=== PATIENT | female | born 1970 | race Caucasian/White ===

== ENCOUNTER 2019-02-13 08:58 | Emergency (ER) | payer SELFPAY ==
[~2019-02-13] VITALS: Ht 165.1 cm; Wt 90.7 kg
[2019-02-13 10:27] VITALS: BP 118/71
[2019-02-13] MEDS ORDERED: NAPR500T8 PO (10:43)
--- NOTE | 2019-02-13 10:44 | PHYS DOC ---
Past Medical History Past Medical History: No Pertinent History Past Surgical History: No Surgical History Alcohol Use: Occasionally Drug Use: None Adult General Chief Complaint Chief Complaint: FOOT INJURY PAIN HPI HPI Patient is a 48 year old female that presents with R foot pain since Tuesday. The patient states that her pain is 5/10 in severity and sharp and even shoots up her calf. She denies injury and states that it hurts to walk on it. Review of Systems Review of Systems Constitutional: Denies fever or chills [] Eyes: Denies change in visual acuity, redness, or eye pain [] HENT: Denies nasal congestion or sore throat [] Respiratory: Denies cough or shortness of breath [] Cardiovascular: No additional information not addressed in HPI [] GI: Denies abdominal pain, nausea, vomiting, bloody stools or diarrhea [] : Denies dysuria or hematuria [] Musculoskeletal: Reports R foot pain. Integument: Denies rash or skin lesions [] Neurologic: Denies headache, focal weakness or sensory changes [] Endocrine: Denies polyuria or polydipsia [] Complete systems were reviewed and found to be within normal limits, except as documented in this note. Physical Exam Physical Exam Constitutional: Well developed, well nourished, no acute distress, non-toxic appearance. [] HENT: Normocephalic, atraumatic, bilateral external ears normal, oropharynx moist, no oral exudates, nose normal. [] Eyes: PERRLA, EOMI, conjunctiva normal, no discharge. [] Neck: Normal range of motion, no tenderness, supple, no stridor. [] Cardiovascular:Heart rate regular rhythm, no murmur [] Lungs & Thorax: Bilateral breath sounds clear to auscultation [] Abdomen: Bowel sounds normal, soft, no tenderness, no masses, no pulsatile masses. [] Skin: Warm, dry, no erythema, no rash. [] Back: No tenderness, no CVA tenderness. [] Extremities: Tenderness to R heel. Neurologic: Alert and oriented X 3, normal motor function, normal sensory function, no focal deficits noted. [] Psychologic: Affect normal, judgement normal, mood normal. [] Current Patient Data Vital Signs Vital Signs Date Time Temp Pulse Resp B/P (MAP) Pulse Ox O2 Delivery O2 Flow Rate FiO2 8/6/19 10:27 98.3 87 16 118/71 (87) 97 Room Air 98.3 EKG EKG [] Radiology/Procedures Radiology/Procedures [] Course & Med Decision Making Course & Med Decision Making Pertinent Labs and Imaging studies reviewed. (See chart for details) Appears to have plantar fasciitis. Discussed with patient. Will d/c home. Dragon Disclaimer Dragon Disclaimer This electronic medical record was generated, in whole or in part, using a voice recognition dictation system. Departure Departure Impression: Primary Impression: Heel pain Disposition: HOME, SELF-CARE Condition: STABLE Referrals: MARLEY LEMUS (PCP) Patient Instructions: Plantar Fasciitis, Plantar Fasciitis (Heel Spur Syndrome) with [facility] Additional Instructions: Thank you for visiting [facility]. We appreciate you trusting us with your care. If any additional problems come up don't hesitate to return to visit us. Please follow up with your primary care provider so they can plan additional care if needed and know about the problem that you had. If symptoms worsen come back to the Emergency Department. Any concerning symptoms that start such as chest pain, shortness of air, weakness or numbness on one side of the body, running high fevers or any other concerning symptoms return to the ER. Please fill your medications at any pharmacy and follow the prescription i nstructions. Scripts Naproxen (NAPROXEN) 500 Mg Tablet.dr 1 TAB PO BID PRN for PAIN, #60 TAB 1 Refill Prov: CRISTI MAI APRN 02/13/19 Problem Qualifiers Primary Impression: Heel pain Laterality: right Qualified Codes: M79.671 - Pain in right foot CRISTI MAI APRN Feb 13, 2019 10:44
== END 2019-02-13 10:57 | disposition home or self-care (01) ==
LOC: ER 08:58
DX: M79.671 Pain in right foot (principal)
CPT/HCPCS: 99282

== ENCOUNTER 2020-01-17 05:11 | Observation (INO) | payer SELFPAY ==
[~2020-01-17] VITALS: Ht 165.1 cm; Wt 82.0 kg
[~2020-01-17 05:11] MED LIST: NAPR500T8 PO
--- NOTE | 2020-01-17 05:27 | PHYS DOC ---
Past Medical History Past Medical History: No Pertinent History (SHREE KAUFFMAN DO) Past Surgical History: No Surgical History (DALYSHREE Vineet NOGUEIRA) Smoking Status: Current Every Day Smoker Alcohol Use: Occasionally Drug Use: None (DALYSHREE Vineet NOGUEIRA) General Adult EDM: Chief Complaint: ASTHMA HPI: HPI: Patient is a 49 year old female with past medical history of asthma presents with the chief complaint of asthma exacerbation. Patient state she has had difficulty breathing associated with wheezing and cough with sputum and sneezing since tuesday. Patients states on tuesday her grand daughter sneezed in her face. States she normally takes albuterol NEB TID but has increased the number of treatments since tuesday. Ran out of her asthma medications today. Called EMS tonight and was given treatments given but declined transport to hospital On arrival to ER oxygen saturations 60's. Patient denies any fevers. (DALYSHREE Vineet NOGUEIRA) Review of Systems: Review of Systems: Constitutional: Denies fever or chills. [] Eyes: Denies change in visual acuity. [] HENT: Denies nasal congestion or sore throat. [] Respiratory: positive cough and shortness of breath Cardiovascular: Denies chest pain or edema. [] GI: Denies abdominal pain, nausea, vomiting, bloody stools or diarrhea. [] : Denies dysuria. [] Musculoskeletal: Denies back pain or joint pain. [] Integument: Denies rash. [] Neurologic: Denies headache, focal weakness or sensory changes. [] Endocrine: Denies polyuria or polydipsia. [] Lymphatic: Denies swollen glands. [] Psychiatric: Denies depression or anxiety. [] (SHREE KAUFFMAN DO) Heart Score: Risk Factors: Risk Factors: DM, Current or recent (<one month) smoker, HTN, HLP, family history of CAD, obesity. Risk Scores: Score 0 - 3: 2.5% MACE over next 6 weeks - Discharge Home Score 4 - 6: 20.3% MACE over next 6 weeks - Admit for Clinical Observation Score 7 - 10: 72.7% MACE over next 6 weeks - Early Invasive Strategies (SHREE KAUFFMAN DO) Current Medications: Current Medications Medications (Trade) Dose Ordered Sig/David Start Time Stop Time Status Last Admin Dose Admin Albuterol/ Ipratropium (Duoneb) 3 ml 1X ONCE 01/17/20 05:30 01/17/20 05:31 UNV 01/17/20 05:22 3 ML Methylprednisolone Sodium Succinate (SOLU-Medrol 125MG VIAL) 125 mg 1X ONCE 01/17/20 05:30 01/17/20 05:31 UNV (SHREE KAUFFMAN DO) Physical Exam: PE: Constitutional: Well developed, well nourished, no acute distress, non-toxic appearance. [] HENT: Normocephalic, atraumatic, bilateral external ears normal, oropharynx moist, no oral exudates, nose normal. [] Eyes: PERRLA, EOMI, conjunctiva normal, no discharge. [] Neck: Normal range of motion, no tenderness, supple, no stridor. [] Cardiovascular:Heart rate regular rhythm, no murmur [] Lungs & Thorax: Bilateral breath sounds clear to auscultation [] Abdomen: Bowel sounds normal, soft, no tenderness, no masses, no pulsatile masses. [] Skin: Warm, dry, no erythema, no rash. [] Back: No tenderness, no CVA tenderness. [] Extremities: No tenderness, no cyanosis, no clubbing, ROM intact, no edema. [] Neurologic: Alert and oriented X 3, normal motor function, normal sensory function, no focal deficits noted. [] Psychologic: Affect normal, judgement normal, mood normal. [] (SHREE KAUFFMAN DO) EKG: EKG: [] (SHREE KAUFFMAN DO) Radiology/Procedures: Radiology/Procedures: [] Impression: FINDINGS: Lungs: Normal lung volume. No pulmonary mass or consolidation. The tracheobronchial tree and hilar structures are normal. Pleura: No pleural effusion or pneumothorax. Heart and Mediastinum: The cardiomediastinal silhouette is normal. The great vessels of the thorax are normal. IMPRESSION: No acute cardiopulmonary process. Electronically signed by: Steve Thapa MD (01/17/2020 5:41 AM) [facility] (SHREE KAUFFMAN DO) Course & Med Decision Making: Course & Med Decision Making Pertinent Labs and Imaging studies reviewed. (See chart for details) [] Intial treatment with Duoneb. Patient states breathing improved post treatment. O2 sats on 4L 96-97% On room air patients drops to upper 80's. Discussed hospitalization-- patient would like to see how she does post medications. Patient just dosed with solumedrol 125mg Magnisum 2 grams ordered. Patient signed out to Dr Fisher pending labs and re-evaluation. (SHREE KAUFFMAN DO) Kia Disclaimer: Kia Disclaimer: This electronic medical record was generated, in whole or in part, using a voice recognition dictation system. (SHREE KAUFFMAN DO) Departure Departure Impression: Primary Impression: Cough Additional Impression: Asthma exacerbation Condition: STABLE Referrals: MARLEY LEMUS (PCP) Justicifation of Admission Dx: Justifications for Admission: Justification of Admission Dx: Yes (OLI FISHER MD) SHREE KAUFFMAN DO Jan 17, 2020 05:27 OLI FISHER MD Jan 17, 2020 13:11
[2020-01-17] MEDS ORDERED: methylPREDNISolone SOD SUCC PF 125 MG/2 ML VIAL. IV ONE (05:30)
[2020-01-17] MEDS ORDERED: IPRATRPIUM/ALBUTEROL 0.5/2.5MG 3 ML NEBU. NEB ONE ×2 (05:30→07:45)
--- NOTE | 2020-01-17 05:45 | RAD ---
CHEST AP ONLY INDICATION: Reason: shortness of breath / Spl. Instructions: / History: . COMPARISON STUDY: 10/02/2012. FINDINGS: Lungs: Normal lung volume. No pulmonary mass or consolidation. The tracheobronchial tree and hilar structures are normal. Pleura: No pleural effusion or pneumothorax. Heart and Mediastinum: The cardiomediastinal silhouette is normal. The great vessels of the thorax are normal. IMPRESSION: No acute cardiopulmonary process. Electronically signed by: Steve Thapa MD (01/17/2020 5:41 AM) [facility]
[2020-01-17 05:46] LABS: BASO # 0.1 x10^3/uL (0.0-0.2); BASO % 1 % (0-3); EOS # 0.5 x10^3/uL (0.0-0.7); EOS % 5 % (0-3); HEMATOCRIT 41.9 % (36.0-47.0); HEMOGLOBIN 13.7 g/dL (12.0-15.5); LYMPH # 1.6 x10^3/uL (1.0-4.8); LYMPH % 15 % (24-48); MEAN CORPUSCULAR HEMOGLOBIN 28 pg (25-35); MEAN CORPUSCULAR HGB CONC 33 g/dL (31-37); MEAN CORPUSCULAR VOLUME 85 fL (79-100); MONO # 0.6 x10^3/uL (0.0-1.1); MONO % 6 % (0-9); NEUT # 7.8 x10^3/uL (1.8-7.7); NEUT % 74 % (31-73); PLATELET COUNT 324 x10^3/uL (140-400); RED BLOOD COUNT 4.92 x10^6/uL (3.50-5.40); RED CELL DISTRIBUTION WIDTH 15.7 % (11.5-14.5); WHITE BLOOD COUNT 10.5 x10^3/uL (4.0-11.0)
[2020-01-17 05:57] LABS: CALCIUM 8.2 mg/dL (8.5-10.1); CREATININE 0.8 mg/dL (0.6-1.0); GFR 76.6; POTASSIUM 3.7 mmol/L (3.5-5.1)
[2020-01-17] MEDS ORDERED: ALBUTEROL SULFATE 2.5 MG/3 ML NEBU. NEB ONE (06:00)
[2020-01-17] MEDS ORDERED: MAGNESIUM SULFATE 2GM 50 ML IV ONE (06:00)
[2020-01-17 06:03] LABS: ALBUMIN 3.6 g/dL (3.4-5.0); ALBUMIN/GLOBULIN RATIO 0.9 (1.0-1.7); TOTAL BILIRUBIN 0.4 mg/dL (0.2-1.0); TOTAL PROTEIN 7.6 g/dL (6.4-8.2)
[2020-01-17] MEDS ORDERED: IPRATRPIUM/ALBUTEROL 0.5/2.5MG 3 ML NEBU. NEB SCH (16:00)
[2020-01-17] MEDS ORDERED: cefTRIAXone IV Push 1 GM VIAL. IVP ONE (16:06)
[2020-01-17] MEDS ORDERED: methylPREDNISolone SOD SUCC PF 125 MG/2 ML VIAL. ONE (16:06)
[2020-01-17] MEDS: methylPREDNISolone SOD SUCC PF 125 MG/2 ML VIAL. IV SCH ×2 (16:09→22:00)
[2020-01-17] MEDS: cefTRIAXone IV Push 1 GM VIAL. IVP SCH (16:11)
[2020-01-17] MEDS: IV NORMAL SALINE 1000ML BAG 1,000 ML IV SCH (16:14)
[2020-01-17] MEDS ORDERED: ALBUTEROL SULFATE 2.5 MG/3 ML NEBU. NEB PRN (16:15)
[2020-01-17] MEDS: IPRATRPIUM/ALBUTEROL 0.5/2.5MG 3 ML NEBU. NEB SCH ×2 (17:01→19:03)
[2020-01-17] MEDS ORDERED: ACETAMINOPHEN 500 MG TABLET PO ONE (17:15)
[2020-01-17 23:00] VITALS: BP 125/81
[2020-01-17] MEDS: HYDROcodone/APAP 7.5/325MG 1 TAB TABLET PO PRN (23:06)
[2020-01-17 23:20] VITALS: BP 135/69
[2020-01-18] MEDS: traZODone 50 MG TABLET. PO PRN ×2 (00:45→21:03)
[2020-01-18] MEDS: IV NORMAL SALINE 1000ML BAG 1,000 ML IV SCH ×2 (02:00→06:10)
[2020-01-18] MEDS: ALBUTEROL SULFATE 8GM INHALER. INH PRN ×2 (02:28→06:00)
[2020-01-18 03:00] VITALS: BP 135/69
[2020-01-18] MEDS ORDERED: IPRATRPIUM/ALBUTEROL 0.5/2.5MG 3 ML NEBU. NEB PRN (05:45)
[2020-01-18] MEDS: methylPREDNISolone SOD SUCC PF 125 MG/2 ML VIAL. IV SCH ×3 (06:06→22:01)
[2020-01-18 07:00] VITALS: BP 114/60
[2020-01-18] MEDS ORDERED: ACET325T9 PO (08:35)
[2020-01-18] MEDS ORDERED: ALBU2.5V8 IH (08:35)
[2020-01-18] MEDS ORDERED: PNV1TABL12 PO (08:35)
[2020-01-18] MEDS ORDERED: GLUC-11 PO (08:35)
[2020-01-18] MEDS ORDERED: NAPR220T70 PO (08:35)
[2020-01-18] MEDS ORDERED: GUAI12003 PO (08:35)
[2020-01-18] MEDS ORDERED: DIPH25CA58 PO (08:35)
[2020-01-18] MEDS ORDERED: ASCO500C PO (08:35)
[2020-01-18] MEDS ORDERED: IPRA3AMP29 NEB (08:35)
[2020-01-18] MEDS ORDERED: DM H1CAP2 PO (08:35)
[2020-01-18] MEDS: HYDROcodone/APAP 7.5/325MG 1 TAB TABLET PO PRN ×2 (09:00→17:20)
--- NOTE | 2020-01-18 09:20 | PDOC ---
Provider Note Provider Note Pt seen.H&P dictated.#[id number]. Justicifation of Admission Dx: Justifications for Admission: Justification of Admission Dx: Yes STEPHANIE CISSE MD Jan 18, 2020 09:20
--- NOTE | 2020-01-18 09:51 | HP ---
ADMIT DATE: 01/17/2020 LOCATION: [facility]. REASON FOR ADMISSION TO THE HOSPITAL: Asthma exacerbation. HISTORY OF PRESENT ILLNESS: The patient is a 49-year-old female, patient of Dr. Kathleen. She has history of asthma for many years. She uses a DuoNeb with a nebulizer at home and Ventolin inhaler and she also has been smoking 1 to 1-1/2 pack lately. The patient had a cold and cough for couple of days, got progressively worse, was seen in the Emergency Room. Chest x-ray was negative. White count was normal. The patient had a COVID test, report is pending and she was given Solu-Medrol, breathing treatment, and did not improve. The patient was admitted to the hospital. PAST MEDICAL HISTORY: History of asthma. Denies any cardiac problems. PAST SURGICAL HISTORY: Denies any major surgeries. ALLERGIES: No known allergies. MEDICATIONS AT HOME: He has a DuoNeb with a nebulizer at home, albuterol inhaler, naproxen, Mucinex, and vitamins. PERSONAL HISTORY: Smokes 1 to 1-1/2 pack for at least 20 years. Denies alcohol. Denies any street drugs. FAMILY HISTORY: Positive for asthma. REVIEW OF SYMPTOMS: Complains of cough, congestion, and wheezing. Denies any fever. Rest of the systems was reviewed and negative. PHYSICAL EXAMINATION: GENERAL: The patient is not in any distress. BMI 30. VITAL SIGNS: Temperature 98, pulse 108, respirations 24, blood pressure 148/71, 61% on room air, on 6 L went up to 92. HEENT: Head is atraumatic. Pupils equal. Oral cavity, slight congestion. Clear drainage. NECK: Supple. Thyroid not enlarged. JVD not elevated. CHEST: Symmetrical. CARDIOVASCULAR: S1, S2. LUNGS: Bilateral both inspiratory, expiratory wheezing anterior and posterior chest. ABDOMEN: Soft, bowel sounds present. EXTREMITIES: No calf tenderness or edema. GENITOURINARY: External genitalia were deferred. NEUROLOGIC: Moving all extremities. No focal deficits noted. LABORATORY DATA: Shows a white count of 10, hemoglobin 13, platelets 324. Electrolytes show sodium 142, potassium 3.7, chloride 103, bicarbonate 31, BUN 8, creatinine 0.8, glucose 185. Liver is normal. Troponin was negative. Chest x-ray, no acute process. FINAL IMPRESSION: 1. Acute COPD/asthma with exacerbation. 2. Precipitated by recent upper respiratory tract infection. 3. Smoking addiction. 4. Body mass index of 30, obesity. PLAN: At this time, was admit to hospital, oxygen nasal cannula, DuoNeb 4 times daily plus p.r.n. IV Solu-Medrol, IV Rocephin, IV fluids, and smoking counseling was done. DVT prevention and see how she improves in the next 1-2 days. STEPHANIE CISSE MD DR: TESSA/quinton JOB#: [id number] / [id number] MARLEY Epps
[2020-01-18 11:00] VITALS: BP 116/56
--- NOTE | 2020-01-18 12:41 | PDOC ---
PULMONARY PROGRESS NOTES Vitals Vital Signs Date Time Temp Pulse Resp B/P (MAP) Pulse Ox O2 Delivery O2 Flow Rate FiO2 01/18/20 11:00 96.9 98 16 116/56 (76) 97 Nasal Cannula 4.0 96.9 Labs Laboratory Tests Test 01/17/20 05:28 White Blood Count 10.5 x10^3/uL (4.0-11.0) Red Blood Count 4.92 x10^6/uL (3.50-5.40) Hemoglobin 13.7 g/dL (12.0-15.5) Hematocrit 41.9 % (36.0-47.0) Mean Corpuscular Volume 85 fL (79-100) Mean Corpuscular Hemoglobin 28 pg (25-35) Mean Corpuscular Hemoglobin Concent 33 g/dL (31-37) Red Cell Distribution Width 15.7 % (11.5-14.5) Platelet Count 324 x10^3/uL (140-400) Neutrophils (%) (Auto) 74 % (31-73) Lymphocytes (%) (Auto) 15 % (24-48) Monocytes (%) (Auto) 6 % (0-9) Eosinophils (%) (Auto) 5 % (0-3) Basophils (%) (Auto) 1 % (0-3) Neutrophils # (Auto) 7.8 x10^3/uL (1.8-7.7) Lymphocytes # (Auto) 1.6 x10^3/uL (1.0-4.8) Monocytes # (Auto) 0.6 x10^3/uL (0.0-1.1) Eosinophils # (Auto) 0.5 x10^3/uL (0.0-0.7) Basophils # (Auto) 0.1 x10^3/uL (0.0-0.2) Sodium Level 142 mmol/L (136-145) Potassium Level 3.7 mmol/L (3.5-5.1) Chloride Level 103 mmol/L (98-107) Carbon Dioxide Level 31 mmol/L (21-32) Anion Gap 8 (6-14) Blood Urea Nitrogen 8 mg/dL (7-20) Creatinine 0.8 mg/dL (0.6-1.0) Estimated GFR (Cockcroft-Gault) 76.6 BUN/Creatinine Ratio 10 (6-20) Glucose Level 185 mg/dL (70-99) Calcium Level 8.2 mg/dL (8.5-10.1) Total Bilirubin 0.4 mg/dL (0.2-1.0) Aspartate Amino Transf (AST/SGOT) 27 U/L (15-37) Alanine Aminotransferase (ALT/SGPT) 48 U/L (14-59) Alkaline Phosphatase 85 U/L (46-116) Troponin I Quantitative < 0.017 ng/mL (0.000-0.055) BK-Nrx-U-Type Natriuretic Peptide 52 pg/mL (0-124) Total Protein 7.6 g/dL (6.4-8.2) Albumin 3.6 g/dL (3.4-5.0) Albumin/Globulin Ratio 0.9 (1.0-1.7) Medications Active Scripts Medications Dose Route/Sig Max Daily Dose Days Date Category Benadryl (Diphenhydramine Hcl) 25 Mg Capsule 2 Cap PO QHS 30 01/18/20 Reported Cidaflex Tablet (Glucosamine Hcl/Chondr Seay A Na) 1 Each Tablet 1 Tab PO BID 30 01/18/20 Reported Complete Caplet (Pnv Cmb#21/Iron/Folic Acid) 1 Each Tablet 1 Each PO DAILY 01/18/20 Reported Vitamin C (Ascorbic Acid) 500 Mg Capsule.er 1 Cap PO DAILY 30 01/18/20 Reported Proair Hfa Inhaler (Albuterol Sulfate) 8.5 Gm Hfa.aer.ad 2 Puff IH PRN Q4-6HRS PRN 21 01/18/20 Reported Mucinex (Guaifenesin) 1,200 Mg Tbmp.12hr 1 Tab PO BID 01/18/20 Reported Tylenol (Acetaminophen) 325 Mg Tablet 1-2 Tab PO QID 01/18/20 Reported Lesia-Lawrence Plus Cld-Cough Cp (Dm Hb/Pe/Acetaminophen/Chlorph) 1 Each Capsule 1 Each PO PRN TID PRN 01/18/20 Reported Aleve (Naproxen Sodium) 220 Mg Tablet 220 Mg PO BID 01/18/20 Reported Duoneb 0.5-3(2.5) Mg/3 Ml (Albuterol/Ipratropium) 3 Ml Ampul.neb 3 Ml NEB QID 01/18/20 Reported Naproxen 500 Mg Tablet. 1 Tab PO BID PRN 02/13/19 Rx Impression . Full note dictated acute exacerbation of COPD with an asthma component JM GALLEGOS MD Jan 18, 2020 12:41
--- NOTE | 2020-01-18 12:48 | CONS ---
DATE OF CONSULTATION: 01/18/2020 ATTENDING PHYSICIAN: Dr. Pablo Hdez. REASON FOR CONSULTATION: The patient seen in pulmonary consultation at the request of Dr. Hdez for wheezing, shortness of breath. HISTORY OF PRESENT ILLNESS: The patient is a 49-year-old female who has a history of asthma normally, driven by smoking, and upper respiratory tract infection. She has been more short of breath and started to wheeze yesterday. She was concerned about the possibility of COVID-19 exposure. She had multiple family members from out of town visiting. Some have come from [place] and [place]. The patient claims that her chronic shortness of breath is related to asthma. She states that normally she uses an albuterol at home and nebulized treatment. It does not sound like she is not on maintenance medication. She normally sees Dr. Kathleen. PAST MEDICAL HISTORY: Asthma, otherwise no DVT, PE. No prior history of hypertension. She does smoke. PAST SURGICAL HISTORY: No major surgeries. ALLERGIES: No known drug allergies. HOME MEDICATIONS: List was reviewed. SOCIAL HISTORY: She smokes 1-1/2 packs of cigarettes a day. FAMILY HISTORY: Positive for asthma and lung cancer. REVIEW OF SYSTEMS: As indicated above, otherwise a 10-point system was reviewed and negative. PHYSICAL EXAMINATION: VITAL SIGNS: Stable. O2 saturation was greater than 92%. HEENT: Eyes, the sclerae were nonicteric. NECK: Jugular venous distention could not be assessed secondary to body habitus. LUNGS: Expiratory wheeze, coarse breath sounds. CARDIOVASCULAR: Regular rate and rhythm with S1, S2, no S3. ABDOMEN: Soft, obese. EXTREMITIES: No clubbing, cyanosis or edema. LABORATORY DATA: Reviewed. White count was normal. Hemoglobin and hematocrit were noted. Electrolytes were noted. Chest x-ray revealed no acute infiltrates. IMPRESSION: 1. Progressive dyspnea secondary to acute exacerbation of chronic obstructive pulmonary disease. 2. Acute exacerbation of chronic obstructive pulmonary disease. 3. Severe bronchospasm. 4. Smoking. 5. Acute exacerbation of asthma. 6. Morbid obesity. PLAN: The patient was admitted due to severe symptoms. She was severely short of breath and could not complete full sentences upon admission. She continues to wheeze. There was also concern about the possibility of COVID-19 exposure. We will continue current support, followup on SARS-CoV-2. The patient instructed on the importance of discontinuing her tobacco use. JM GALLEGOS MD DR: MACKENZIE/quinton JOB#: [id number] / [id number]
[2020-01-18] MEDS: cefTRIAXone IV Push 1 GM VIAL. IVP SCH (14:54)
[2020-01-18 15:01] VITALS: BP 118/61
--- NOTE | 2020-01-18 16:46 | NUR ---
SW following. Spoke with RN and reviewed chart. Pt from home with plans to return at discharge. Pt on IV Rocephin and 4l 02. Pt self pay and is being followed by [facility]. SW to continue following.
[2020-01-18 19:40] VITALS: BP 118/72
[2020-01-18] MEDS: LACTOBACILLUS RHAMNOSUS GG 1 CAPSULE. PO SCH (20:56)
[2020-01-18] MEDS ORDERED: ALBUTEROL SULFATE 2.5 MG/3 ML NEBU. NEB PRN (22:45)
[2020-01-18 23:00] VITALS: BP 118/76
[2020-01-19 03:20] VITALS: BP 116/61
[2020-01-19] MEDS: HYDROcodone/APAP 7.5/325MG 1 TAB TABLET PO PRN (05:41)
[2020-01-19] MEDS: methylPREDNISolone SOD SUCC PF 125 MG/2 ML VIAL. IV SCH (05:48)
[2020-01-19 07:15] VITALS: BP 122/76
[2020-01-19] MEDS: IPRATRPIUM/ALBUTEROL 0.5/2.5MG 3 ML NEBU. NEB SCH ×3 (07:18→15:23)
[2020-01-19] MEDS: LACTOBACILLUS RHAMNOSUS GG 1 CAPSULE. PO SCH (09:20)
--- NOTE | 2020-01-19 10:43 | PDOC ---
PROGRESS NOTES Subjective Subjective Feels better ,want to go home Objective Objective Vital Signs Date Time Temp Pulse Resp B/P (MAP) Pulse Ox O2 Delivery O2 Flow Rate FiO2 01/19/20 07:19 95 Nasal Cannula 2.0 01/19/20 07:15 97.6 87 18 122/76 (91) 97.6 Intake and Output 01/19/20 07:00 Intake Total 400 ml Balance 400 ml Intake Oral 400 ml # Voids 2 Physical Exam Abdomen: Normal bowel sounds, Soft Heart: Regular rate Extremities: No clubbing General: Alert HEENT: Atraumatic Lungs: Clear to auscultation MUSCULOSKELETAL: No deformity Neck: Supple Neuro: Normal speech Psych/Mental Status: Mental status NL Skin: No breakdown Diagnosis Problem List Problems Medical Problems: (1) Asthma exacerbation Status: Acute (2) Cough Status: Acute Assessment Assessment Problems Medical Problems: (1) Asthma exacerbation Status: Acute (2) Cough Status: Acute FINAL IMPRESSION: 1. Acute asthma / COPD with exacerbation. 2. Precipitated by recent upper respiratory tract infection. 3. Smoking addiction. 4. Body mass index of 30, obesity. PLAN: cxr -neg labs ok covid -neg home today po prednisone+doxycycline smoking counseling done At this time, was admit to hospital, oxygen nasal cannula, DuoNeb 4 times daily plus p.r.n. IV Solu-Medrol, IV Rocephin, IV fluids, and smoking counseling was done. DVT prevention and see how she improves in the next 1-2 days. Plan Plan of Care Problems Medical Problems: (1) Asthma exacerbation Status: Acute (2) Cough Status: Acute Comment Review of Relevant I have reviewed the following items gwen (where applicable) has been applied. Medications Current Medications Albuterol Sulfate (Ventolin Neb Soln) 2.5 mg PRN QID PRN NEB SHORTNESS OF BREATH Last administered on 01/19/20at 04:38; Start 01/18/20 at 22:45 Albuterol/ Ipratropium (Duoneb) 3 ml RTQID NEB Last administered on 01/19/20at 07:18; Start 01/19/20 at 08:00 Lactobacillus Rhamnosus (Culturelle) 1 cap BID PO Last administered on 01/19/20at 09:20; Start 01/18/20 at 21:00 Vitals/I & O Vital Sign - Last 24 Hours 01/18/20 01/18/20 01/18/20 01/18/20 11:00 15:01 17:20 18:20 Temp 96.9 97.1 96.9 97.1 Pulse 98 89 Resp 16 15 B/P (MAP) 116/56 (76) 118/61 (80) Pulse Ox 97 97 97 97 O2 Delivery Nasal Cannula Nasal Cannula Room Air Room Air O2 Flow Rate 4.0 4.0 4.0 4.0 01/18/20 01/18/20 01/18/20 01/19/20 19:40 20:15 23:00 03:20 Temp 98.3 97.9 97.9 98.3 97.9 97.9 Pulse 89 87 87 Resp 22 20 22 B/P (MAP) 118/72 (87) 118/76 (90) 116/61 (79) Pulse Ox 93 95 95 O2 Delivery Nasal Cannula Nasal Cannula Nasal Cannula Nasal Cannula O2 Flow Rate 2.0 2.0 2.0 01/19/20 01/19/20 01/19/20 01/19/20 04:38 05:41 06:38 07:15 Temp 97.6 97.6 Pulse 87 Resp 18 B/P (MAP) 122/76 (91) Pulse Ox 95 95 O2 Delivery Nasal Cannula Nasal Cannula Nasal Cannula Nasal Cannula O2 Flow Rate 2.0 2.0 2.0 2.0 01/19/20 07:19 Pulse Ox 95 O2 Delivery Nasal Cannula O2 Flow Rate 2.0 Intake and Output 01/18/20 01/18/20 01/19/20 15:00 23:00 07:00 Intake Total 400 ml Balance 400 ml Justicifation of Admission Dx: Justifications for Admission: Justification of Admission Dx: Yes STEPHANIE CISSE MD Jan 19, 2020 10:43
[2020-01-19] MEDS ORDERED: PRED20TA PO (10:48)
[2020-01-19] MEDS ORDERED: DOXY100T PO (10:48)
--- NOTE | 2020-01-19 10:51 | PDOC ---
Provider Note Provider Note Discharge summary dictated.#[id number]. Justicifation of Admission Dx: Justifications for Admission: Justification of Admission Dx: Yes STEPHANIE CISSE MD Jan 19, 2020 10:51
[2020-01-19 11:00] VITALS: BP 124/87
--- NOTE | 2020-01-19 11:00 | PDOC ---
PULMONARY PROGRESS NOTES Subjective sob better, off 02, has cough, no pain Vitals Vital Signs Date Time Temp Pulse Resp B/P (MAP) Pulse Ox O2 Delivery O2 Flow Rate FiO2 01/19/20 07:19 95 Nasal Cannula 2.0 01/19/20 07:15 97.6 87 18 122/76 (91) 97.6 ROS: No Nausea General: Alert, Oriented X4 HEENT: Other (nc at perrl) Lungs: Clear Cardiovascular: S1, S2 Abdomen: Soft, Non-tender Neuro Exam: Alert Extremities: No Edema Skin: Warm Medications Active Scripts Medications Dose Route/Sig Max Daily Dose Days Date Category Benadryl (Diphenhydramine Hcl) 25 Mg Capsule 2 Cap PO QHS 30 01/18/20 Reported Cidaflex Tablet (Glucosamine Hcl/Chondr Seay A Na) 1 Each Tablet 1 Tab PO BID 30 01/18/20 Reported Complete Caplet (Pnv Cmb#21/Iron/Folic Acid) 1 Each Tablet 1 Each PO DAILY 01/18/20 Reported Vitamin C (Ascorbic Acid) 500 Mg Capsule.er 1 Cap PO DAILY 30 01/18/20 Reported Proair Hfa Inhaler (Albuterol Sulfate) 8.5 Gm Hfa.aer.ad 2 Puff IH PRN Q4-6HRS PRN 21 01/18/20 Reported Mucinex (Guaifenesin) 1,200 Mg Tbmp.12hr 1 Tab PO BID 7 01/18/20 Reported Tylenol (Acetaminophen) 325 Mg Tablet 1-2 Tab PO QID 01/18/20 Reported Lesia-Greenwood Plus Cld-Cough Cp (Dm Hb/Pe/Acetaminophen/Chlorph) 1 Each Capsule 1 Each PO PRN TID PRN 01/18/20 Reported Aleve (Naproxen Sodium) 220 Mg Tablet 220 Mg PO BID 01/18/20 Reported Duoneb 0.5-3(2.5) Mg/3 Ml (Albuterol/Ipratropium) 3 Ml Ampul.neb 3 Ml NEB QID 01/18/20 Reported Naproxen 500 Mg Tablet.dr 1 Tab PO BID PRN 02/13/19 Rx Impression . IMPRESSION: 1. Progressive dyspnea secondary to acute exacerbation of chronic obstructive pulmonary disease. 2. Acute exacerbation of chronic obstructive pulmonary disease. 3. Severe bronchospasm. 4. Smoking. 5. Acute exacerbation of asthma. 6. Morbid obesity. Plan . 02 titration agree with 6 min walk change solumedrol to prednisone 40 mg daily w taper by 10 mg q 3d advised to quit smoking psg out pt raciel, z pack discussed w rn, pt DIONICIO DEWITT MD Jan 19, 2020 11:00
--- NOTE | 2020-01-19 11:09 | DS ---
DATE OF DISCHARGE: 01/19/2020 REASON FOR ADMISSION TO THE HOSPITAL: COPD/asthma exacerbation. CONSULTATION: Cathleen Ryan MD HOSPITAL COURSE: The patient is a 49-year-old female with history of obesity, chronic smoker, COPD/asthma, had upper respiratory infection, got progressively worse, did not improve with breathing treatment. She uses nebulizer at home. The patient was given Solu-Medrol, IV antibiotics. Chest x-ray was negative. COVID test was negative. She was seen by Pulmonology. Smoking counseling was done. Condition improved in 48 hours and she was discharged on oral prednisone and doxycycline and smoking counseling was done. FINAL DIAGNOSES: 1. Chronic obstructive pulmonary disease with acute exacerbation. 2. Upper respiratory infection with bronchitis. 3. Chronic smoking. 4. Morbid obesity. DISCHARGE MEDICATIONS: See MRAD for discharge medications. The patient was expressed the importance of quit smoking and she has a nebulizer and inhalers at home. Follow with PCP and recommended flu and pneumonia vaccinations. STEPHANIE CISSE MD DR: TESSA/quinton JOB#: [id number] / [id number] MARLEY Epps
--- NOTE | 2020-01-19 14:56 | NUR ---
pt qualified for 2L O2 w/ exertion however does not have insurance and cannot afford out of pocket. Dr. Hdez aware. Pt being sent home on room air
--- NOTE | 2020-01-19 16:25 | NUR ---
pt discharged home w/ significant other. meds and follow up reviewed. IV removed, cath intact. pt stable upon dc
[2020-01-20] MEDS ORDERED: predniSONE 20 MG TABLET PO SCH (09:00)
== END 2020-01-19 16:26 | disposition home or self-care (01) ==
LOC: ER 05:11 → ED HOLD 10:53 → 4 NORTH 12:35 → 6 SOUTH 22:40 → 4 NORTH 01-18 19:16
PROVIDERS: ADMIT Internal Medicine; ATTEND Internal Medicine
DX: J45.901 Unspecified asthma with (acute) exacerbation (principal); Z20.828 Contact with and (suspected) exposure to other viral communicable diseases; J06.9 Acute upper respiratory infection, unspecified; E66.9 Obesity, unspecified; F17.210 Nicotine dependence, cigarettes, uncomplicated; Z68.30 Body mass index [BMI] 30.0-30.9, adult
CPT/HCPCS: 36415; 71045; 80053; 83880; 84484; 85025; 94618; 94640; 96365; 96366; 96375; 96376; 99284; 99406; G0378; J0696; J2930; J3475; J7030; U0003; G0379; J7613

== ENCOUNTER 2020-09-14 14:36 | Emergency (ER) | payer SELFPAY ==
[~2020-09-14] VITALS: Ht 165.1 cm; Wt 79.0 kg
[~2020-09-14 14:36] MED LIST changes: +ACET325T9 PO; +ALBU2.5V8 IH; +ASCO500C PO; +DIPH25CA58 PO; +DM H1CAP2 PO; +DOXY100T PO; +GLUC-11 PO; +GUAI12003 PO; +IPRA3AMP29 NEB; +NAPR220T70 PO; +PNV1TABL12 PO; +PRED20TA PO
[2020-09-14 14:40] VITALS: BP 119/60
[2020-09-14] MEDS ORDERED: FAMOTIDINE 20 MG/2 ML VIAL IVP ONE (15:00)
[2020-09-14] MEDS ORDERED: diphenhydrAMINE 50 MG/ML VIAL IVP ONE (15:00)
[2020-09-14] MEDS ORDERED: IPRATRPIUM/ALBUTEROL 0.5/2.5MG 3 ML NEBU. NEB ONE (15:00)
[2020-09-14] MEDS ORDERED: methylPREDNISolone SOD SUCC PF 125 MG/2 ML VIAL. IV ONE (15:00)
[2020-09-14] MEDS ORDERED: EPINEPHrine 1 MG/ML VIAL IM ONE (15:00)
--- NOTE | 2020-09-14 15:25 | PHYS DOC ---
Past Medical History Past Medical History: No Pertinent History, Asthma Past Surgical History: No Surgical History Smoking Status: Current Every Day Smoker Alcohol Use: Occasionally Drug Use: None General Adult EDM: Chief Complaint: shortness of air HPI: HPI: Patient is a 50 year old female who was brought here by EMS from home due to trouble breathing and trouble swallowing. Patient stated that she has been having upper respiratory symptoms with cough congestion for 2 days. Patient went to the drugstore today and bought some [id number] NyQuil. Patient took the medication, and about 20 minutes later she feels like her throat was swelling up, she had trouble breathing. Patient is a smoker, she smokes about a pack per day, history of asthma. EMS were called they placed him oxygen on her nose and brought him here for evaluation. Patient denies any chest pain, no abdominal pain, no nausea vomiting. Patient denies any rash or itching anywhere. Patient says she seemed to have to clear her throat so often because it was itchy. Review of Systems: Review of Systems: Constitutional: Denies fever or chills. [] Eyes: Denies change in visual acuity. [] HENT: Positive for nasal congestion or sore throat. [] Respiratory: Positive for cough and shortness of breath. [] Cardiovascular: Denies chest pain or edema. [] GI: Denies abdominal pain, nausea, vomiting, bloody stools or diarrhea. [] : Denies dysuria. [] Musculoskeletal: Denies back pain or joint pain. [] Integument: Denies rash. [] Neurologic: Denies headache, focal weakness or sensory changes. [] Endocrine: Denies polyuria or polydipsia. [] Lymphatic: Denies swollen glands. [] Psychiatric: Denies depression or anxiety. [] Heart Score: C/O Chest Pain: N/A Risk Factors: Risk Factors: DM, Current or recent (<one month) smoker, HTN, HLP, family history of CAD, obesity. Risk Scores: Score 0 - 3: 2.5% MACE over next 6 weeks - Discharge Home Score 4 - 6: 20.3% MACE over next 6 weeks - Admit for Clinical Observation Score 7 - 10: 72.7% MACE over next 6 weeks - Early Invasive Strategies Current Medications: Current Medications Medications (Trade) Dose Ordered Sig/David Start Time Stop Time Status Last Admin Dose Admin Albuterol/ Ipratropium (Duoneb) 3 ml 1X ONCE 09/14/20 15:00 09/14/20 15:01 DC 09/14/20 15:06 3 ML Diphenhydramine HCl (Benadryl) 25 mg 1X ONCE 09/14/20 15:00 09/14/20 15:01 DC 09/14/20 15:20 25 MG Epinephrine HCl (Adrenalin) 0.3 mg 1X ONCE 09/14/20 15:00 09/14/20 15:01 DC 09/14/20 15:19 0.3 MG Famotidine (Pepcid Vial) 20 mg 1X ONCE 09/14/20 15:00 09/14/20 15:01 DC 09/14/20 15:20 20 MG Methylprednisolone Sodium Succinate (SOLU-Medrol 125MG VIAL) 125 mg 1X ONCE 09/14/20 15:00 09/14/20 15:01 DC 09/14/20 15:19 125 MG Allergies: Allergies: Allergies Coded Allergies Type Severity Reaction Last Updated Verified No Known Drug Allergies 01/17/20 No Physical Exam: PE: Constitutional: Well developed, well nourished, no acute distress, non-toxic appearance. [] HENT: Normocephalic, atraumatic, bilateral external ears normal, oropharynx moist, no oral exudates, nose normal. There is no angioedema. No tongue swelling, no lip swelling. Eyes: PERRLA, EOMI, conjunctiva normal, no discharge. [] Neck: Normal range of motion, no tenderness, supple, no stridor. [] Cardiovascular:Heart rate regular rhythm, no murmur [] Lungs & Thorax: Bilateral breath sounds with wheezing to auscultation [] Abdomen: Bowel sounds normal, soft, no tenderness, no masses, no pulsatile masses. [] Skin: Warm, dry, no erythema, no rash. [] Back: No tenderness, no CVA tenderness. [] Extremities: No tenderness, no cyanosis, no clubbing, ROM intact, no edema. [] Neurologic: Alert and oriented X 3, normal motor function, normal sensory function, no focal deficits noted. [] Psychologic: Affect normal, judgement normal, mood normal. [] Current Patient Data: Vital Signs: Vital Signs Date Time Temp Pulse Resp B/P (MAP) Pulse Ox O2 Delivery O2 Flow Rate FiO2 09/14/20 15:06 93 Nasal Cannula 2.0 EKG: EKG: [] Radiology/Procedures: Radiology/Procedures: [][facility] [address] [place] [address] IMAGING REPORT Signed PATIENT: BERNIE CHAMBERS ACCOUNT: [id number] : 1970 LOCATION: ER AGE: 50 SEX: F EXAM STATUS: PRE ER ORD. PHYSICIAN: ANNY HIDALGO DO REASON: soa DRAWING BLOOD AT 305PM PROCEDURE: CHEST AP ONLY AP chest. HISTORY: Short of air AP view was taken of the chest. Lungs are free of infiltrates. Heart is normal in size. There is no pleural effusion. IMPRESSION: 1. No acute chest disease. Electronically signed by: Carlos A Rubin MD (09/14/2020 3:24 PM) [id number] DICTATED and SIGNED BY: CARLOS A RUBIN MD DATE: 09/14/20 [id number] Course & Med Decision Making: Course & Med Decision Making Pertinent Labs and Imaging studies reviewed. (See chart for details) Patient is a 50-year-old female who presented to ER due to allergic reaction. Patient had bronchospasm, patient was given medication in the ER, she felt much better. Patient was able to talk, swallow without any problem. Patient will be discharged home with medication to be taken at home. Patient will need to follow-up with her doctor tomorrow for reevaluation. Patient is amenable to plan of care. Dragon Disclaimer: [place] Disclaimer: This electronic medical record was generated, in whole or in part, using a voice recognition dictation system. Departure Departure Impression: Primary Impression: Allergic reaction Additional Impression: Bronchospasm, acute Disposition: 01 DC HOME SELF CARE/HOMELESS Condition: IMPROVED Referrals: MARLEY LEMUS (PCP) follow up with your doctor on Tuesday Patient Instructions: Bronchospasm, Adult, Drug Allergy Additional Instructions: Thank you for visiting our Emergency Department. We appreciate you trusting us with your care. If any additional problems come up don't hesitate to return to visit us. Please follow up with your primary care provider so they can plan additional care if needed and know about the problem that you had. If symptoms worsen come back to the Emergency Department. Any concerning symptoms that start such as chest pain, shortness of air, weakness or numbness on one side of the body, running high fevers or any other concerning symptoms return to the ER. Scripts Albuterol Sulfate (PROAIR HFA INHALER) 8.5 Gm Hfa.aer.ad 2 PUFF IH PRN Q4-6HRS PRN for wheezing for 21 Days, #1 INHALER 0 Refills Prov: ANNY HIDALGO DO 09/14/20 Famotidine (PEPCID) 20 Mg Tablet 20 MG PO HS for 7 Days, #7 TAB Prov: ANNY HIDALGO DO 09/14/20 Prednisone (PREDNISONE) 20 Mg Tablet 1 TAB PO DAILY for 7 Days, #7 TAB Prov: ANNY HIDALGO DO 09/14/20 ANNY HIDALGO DO Sep 14, 2020 15:24
--- NOTE | 2020-09-14 15:26 | RAD ---
AP chest. HISTORY: Short of air AP view was taken of the chest. Lungs are free of infiltrates. Heart is normal in size. There is no p leural effusion. IMPRESSION: 1. No acute chest disease. Electronically signed by: Carlos A Rubin MD (09/14/2020 3:24 PM) [id number]
[2020-09-14] MEDS ORDERED: RACEPINEPHRINE 2.25% 0.5 ML NEBU. NEB ONE (16:45)
[2020-09-14] MEDS ORDERED: PRED20TA PO (18:06)
[2020-09-14] MEDS ORDERED: FAMO-63 PO (18:06)
[2020-09-14] MEDS ORDERED: ALBU2.5V8 IH (18:06)
== END 2020-09-14 18:00 | disposition home or self-care (01) ==
LOC: ER 14:36
DX: J45.909 Unspecified asthma, uncomplicated (principal); T50.995A Adverse effect of other drugs, medicaments and biological substances, initial encounter; R05 Cough; R09.81 Nasal congestion; R60.0 Localized edema; F17.200 Nicotine dependence, unspecified, uncomplicated; Y92.89 Other specified places as the place of occurrence of the external cause
CPT/HCPCS: 71045; 94640; 96372; 96374; 96375; 99284; J0171; J1200; J2930; J3490